=== PATIENT | male | born 1965 ===

== ENCOUNTER 2017-12-26 16:32 | Emergency (ER) | payer BC ==
[2017-12-26] MEDS ORDERED: Iohexol 240 (50 ml) PO STA (17:02)
[2017-12-26 17:19] LABS: BASO # 0.1 K/uL (0.0-0.2); BASO % 0.9 % (0.0-2.0); EOS # 0.2 K/uL (0.0-0.7); EOS % 1.8 % (0.0-4.0); HEMOGLOBIN 14.7 g/dL (12.0-18.0); LYMPH # 1.5 K/uL (1.0-4.3); LYMPH % 15.9 % (20.0-40.0); MEAN CELL VOLUME 88.1 fl (80.0-94.0); MEAN CORPUSCULAR HEMOGLOBIN 29.6 pg (27.0-31.0); MEAN CORPUSCULAR HGB CONC 33.6 g/dL (33.0-37.0); MEAN PLATELET VOLUME 8.7 fl (7.2-11.7); MONO # 0.5 K/uL (0.0-0.8); MONO % 5.7 % (0.0-10.0); NEUT # 6.9 K/uL (1.8-7.0); NEUT % 75.7 % (50.0-75.0); RBC 4.95 Mil/uL (4.40-5.90); WHITE BLOOD COUNT 9.2 K/uL (4.8-10.8)
--- NOTE | 2017-12-26 17:20 | ED PDOC ---
HPI: Abdomen Time Seen by Provider: 12/26/17 16:42 Chief Complaint (Nursing): Abdominal Pain Chief Complaint (Provider): abdominal pain History Per: Patient History/Exam Limitations: no limitations Onset/Duration Of Symptoms: Days (x1 week) Current Symptoms Are (Timing): Still Present Location Of Pain/Discomfort: LLQ Associated Symptoms: Chills, Nausea, Loss Of Appetite. denies: Fever, Vomiting , Diarrhea, Constipation, Urinary Symptoms Additional Complaint(s): Anthony Cuevas is a 52 year old male, with a past medical history of diabetes, who presents to the emergency department for a worsening intermittent abdominal pain onset for x1 week. Patient states pain started after eating something with tortilla and cheese. Patient further states pain worsens when he eats and localizes to left lower part of abdomen and associated with intermittent nausea but no vomiting. Patient reports shaking chills x2 days ago that resolved spontaneously but denies any fever. He saw his MD on and started him on Cipro but he reports that he seems to be still getting worst. Today he tried to eat a normal meal for breakfast but pain just increased. He reports a loss of appetite but denies any constipation or diarrhea, black or bloody stools, and urinary symptoms. No further medical complaints. PMD: Dr. Josué Pandey Past Medical History Reviewed: Historical Data, Nursing Documentation, Vital Signs Vital Signs: Last Vital Signs Temp 97.8 F 12/26/17 20:20 Pulse 74 12/26/17 20:20 Resp 18 12/26/17 20:20 BP 154/84 H 12/26/17 20:20 Pulse Ox 97 12/26/17 21:04 - Medical History PMH: Diabetes - Surgical History Surgical History: Appendectomy Other surgeries: knee and shoulder surgeries - Family History Family History: States: Diabetes - Social History Current smoker - smoking cessation education provided: No Alcohol: None Drugs: Denies - Home Medications Home Medications: Ambulatory Orders Medication Instructions Recorded Amoxicillin/Clavulanate [Augmentin 1 tab PO BID #14 tab 09/26/16 875 MG-125 MG] Insulin Human (NPH)/Regular 15 units SQ BID 09/26/16 [Novolin 70/30 (70/30 units/ml) 10 ml] Repaglinide [Prandin] 4 mg PO DAILY 09/26/16 metFORMIN [glucOPHAGE] 500 mg PO BID 09/26/16 Ibuprofen [Motrin Tab] 600 mg PO Q8 PRN #30 tab 12/26/17 Ondansetron ODT [Zofran ODT] 1 odt PO Q6 PRN #20 odt 12/26/17 Saccharomyces Boulardi [Florastor] 500 mg PO BID #28 cap 12/26/17 - Allergies Allergies/Adverse Reactions: Allergies Allergy/AdvReac Type Severity Reaction Status Date / Time No Known Allergies Allergy Verified 12/26/17 16:36 Review of Systems ROS Statement: Except As Marked, All Systems Reviewed And Found Negative Constitutional: Positive for: Chills. Negative for: Fever Gastrointestinal: Positive for: Nausea, Abdominal Pain. Negative for: Vomiting , Diarrhea, Constipation, Melena, Hematochezia Genitourinary Male: Negative for: Dysuria, Frequency Physical Exam - Reviewed Nursing Documentation Reviewed: Yes Vital Signs Reviewed: Yes - Physical Exam Appears: Positive for: In Acute Distress (mild painful distress). Negative for : Non-toxic Head Exam: Positive for: ATRAUMATIC, NORMAL INSPECTION, NORMOCEPHALIC Skin: Positive for: Normal Color, Warm, Dry Eye Exam: Positive for: EOMI, PERRL ENT: Positive for: Pharynx Is (clear) Neck: Positive for: Painless ROM, Supple Cardiovascular/Chest: Positive for: Regular Rate, Rhythm. Negative for: Murmur Respiratory: Positive for: Normal Breath Sounds. Negative for: Wheezing Gastrointestinal/Abdominal: Positive for: Soft, Tenderness (to palpation on LLQ) , Other (obese). Negative for: Mass, Guarding, Rebound Back: Positive for: Normal Inspection. Negative for: Decreased ROM Extremity: Positive for: Normal ROM. Negative for: Deformity Lymphatic: Negative for: Adenopathy Neurologic/Psych: Positive for: Alert, Oriented. Negative for: Motor/Sensory Deficits - Laboratory Results Result Diagrams: 12/26/17 17:10 12/26/17 17:10 - ECG O2 Sat by Pulse Oximetry: 97 (RA) Pulse Ox Interpretation: Normal Medical Decision Making Medical Decision Making: Time: 16:42 Initial Impression: LLQ abdominal pain. Differential includes but not limited to colitis, diverticulitis, cystitis and enteritis. Initial Plan: --Abd Pelvis PO & IV Contrast [CT] --CMP --Lipase --Magnesium --Phosphorus --CBC w/ differential --PTT --PT --Omnipaque 240 ml 50 ml PO --Zofran Inj 4 mg IVP --Reevaluation 20:53 Abdomen/Pelvis CT EXAM: CT Abdomen and Pelvis With Intravenous Contrast CLINICAL HISTORY: 52 years old, male; Pain; Abdominal pain; Localized; Left lower quadrant (llq); Prior surgery; Surgery date: 6+ months; Surgery type: Append. Removed; Additional info: Llq pain TECHNIQUE: Axial computed tomography images of the abdomen and pelvis with intravenous contrast. All CT scans at this facility use at least one of these dose optimization techniques: automated exposure control; mA and/or kV adjustment per patient size (includes targeted exams where dose is matched to clinical indication); or iterative reconstruction. Coronal and sagittal reformatted images were created and reviewed. CONTRAST: 100 mL of [id number] was administered intravenously. COMPARISON: No relevant prior studies available. FINDINGS: Lung bases: Unremarkable. No mass. No consolidation. ABDOMEN: Liver: Unremarkable. No mass. Gallbladder and bile ducts: Unremarkable. No calcified stones. No ductal dilation. Pancreas: Unremarkable. No mass. No ductal dilation. Spleen: Unremarkable. No splenomegaly. Adrenals: Unremarkable. No mass. Kidneys and ureters: Unremarkable. No solid mass. No hydronephrosis. Stomach and bowel: Unremarkable. No obstruction. No mucosal thickening. PELVIS: Appendix: Appendectomy. Bladder: Unremarkable. No mass. Reproductive: Unremarkable as visualized. ABDOMEN and PELVIS: Intraperitoneal space: Unremarkable. No free air. No significant fluid collection. Bones/joints: No acute fracture. No dislocation. Soft tissues: Bilateral inguinal hernias containing fat. Vasculature: Unremarkable. No abdominal aortic aneurysm. Lymph nodes: Unremarkable. No enlarged lymph nodes. IMPRESSION: No acute findings. Thank you for allowing us to participate in the care of your patient. 21:00 -discussed with patient findings and plan of care. Pt. 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 ----- Scribe Attestation: Documented by Marc Barry, acting as a scribe for Allie Jones MD. Provider Scribe Attestation: All medical record entries made by the Scribe were at my direction and personally dictated by me. I have reviewed the chart and agree that the record accurately reflects my personal performance of the history, physical exam, medical decision making, and the department course for this patient. I have also personally directed, reviewed, and agree with the discharge instructions and disposition. Disposition - Clinical Impression Clinical Impression: Abdominal pain Counseled Patient/Family Regarding: Studies Performed, Diagnosis, Need For Followup, Rx Given - Disposition Disposition: Routine/Home Disposition Time: 21:00 Condition: STABLE Additional Instructions: FOLLOW UP WITH DR PANDEY NEXT WEEK FOR REEVALUATION. YOU MAY NEED A REFERRAL TO A REHABILITATION TEACHER IF YOU SYMPTOMS PERSIST. MAKE SURE YOU HOLD YOUR METFORMIN FOR 24 HOURS. YOU CAN RESTART THURSDAY MORNING. Prescriptions: Ibuprofen [Motrin Tab] 600 mg PO Q8 PRN #30 tab PRN Reason: Pain, Moderate (4-7) Ondansetron ODT [Zofran ODT] 1 odt PO Q6 PRN #20 odt PRN Reason: Nausea/Vomiting Saccharomyces Boulardi [Florastor] 500 mg PO BID #28 cap Instructions: Acute Abdomen (Belly Pain), Hyperglycemia, Adult (DC) Forms: [facility] ED School/Work Excuse
[2017-12-26 17:22] LABS: PROTHROMBIN TIME 11.5 Seconds (9.8-13.1)
[2017-12-26 17:24] LABS: PARTIAL THROMBOPLASTIN TIME 30.3 Seconds (25.6-37.1)
[2017-12-26 17:27] LABS: ALB/GLOB RATIO 1.2 (1.0-2.1); ALT/SGPT 31 U/L (21-72); AST/SGOT 29 U/L (17-59); BLOOD UREA NITROGEN 14 mg/dl (9-20); CALCIUM 9.4 mg/dL (8.4-10.2); GFR NON-AFRICAN AMERICAN > 60; LIPASE 38 U/L (23-300)
[2017-12-26] MEDS ORDERED: Iohexol 300 100 ML IJ ONE (19:12)
[2017-12-26] MEDS ORDERED: Sodium Chloride 0.9% 50 ML IV ONE (19:12)
[2017-12-26 20:40] VITALS: RESP 18
[2017-12-26 21:02] VITALS: O2SAT 97
[2017-12-26 21:37] VITALS: BP 159/93; PULSE 71; TEMP 97.9
--- NOTE | 2017-12-27 08:37 | CT ---
Date of service: 12/26/2017 PROCEDURE: CT Abdomen and Pelvis with contrast HISTORY: LLQ pain COMPARISON: None. TECHNIQUE: Contrast dose: Radiation dose: Total exam DLP = mGy-cm. This CT exam was performed using one or more of the following dose reduction techniques: Automated exposure control, adjustment of the mA and/or kV according to patient size, and/or use of iterative reconstruction technique. FINDINGS: LOWER THORAX: Unremarkable. LIVER: Unremarkable. No gross lesion or ductal dilatation. GALLBLADDER AND BILE DUCTS: Unremarkable. PANCREAS: Unremarkable. No gross lesion or ductal dilatation. SPLEEN: Unremarkable. ADRENALS: Unremarkable. No mass. KIDNEYS AND URETERS: Unremarkable. No hydronephrosis. No solid mass. VASCULATURE: Unremarkable. No aortic aneurysm. BOWEL: Unremarkable. No obstruction. No gross mural thickening. APPENDIX: Normal appendix. PERITONEUM: Unremarkable. No free fluid. No free air. LYMPH NODES: Unremarkable. No enlarged lymph nodes. BLADDER: Unremarkable. REPRODUCTIVE: Unremarkable. BONES: No acute fracture. OTHER FINDINGS: None. IMPRESSION: Unremarkable contrast enhanced CT of the abdomen and pelvis.
== END 2017-12-26 21:26 | disposition home or self-care (01) ==
LOC: H.ER 16:32
DX: R10.32 Left lower quadrant pain (principal)
CPT/HCPCS: 74177; 80053; 82948; 83690; 83735; 84100; 85025; 85610; 85730; 96374; 99285; J2405; Q9966; Q9967